=== PATIENT | female | born 1990 | race Caucasian/White ===

== ENCOUNTER 2016-10-10 23:36 | Emergency (ER) | payer MEDICAID ==
[~2016-10-10] VITALS: Ht 172.7 cm; Wt 100.7 kg
[~2016-10-10 23:36] MED LIST: ALB0.5V INH; DIVA250T4 PO; FLUT1DIS3 IH; HYDR-3702 PO; LURA80TA PO; RIZA10TA23 PO; TRAZ300T3 PO
[2016-10-11] MEDS ORDERED: SODIUM CHLORIDE FLUSH 10 ML SYR IV PRN (00:30)
[2016-10-11] MEDS ORDERED: SODIUM CHLORIDE FLUSH 3 ML SYR IV PRN (00:30)
[2016-10-11] MEDS ORDERED: cefTRIAXone SODIUM 1,000 MG in SODIUM CHLORIDE 50 ML IV ONE (00:30)
[2016-10-11] MEDS ORDERED: PROMETHAZINE/CODEINE SYRUP 6.25MG-10MG/5ML (PHENERGAN W/COD) UDC PO ONE (00:30)
[2016-10-11] MEDS ORDERED: GFCD10B GT (00:35)
[2016-10-11 01:06] LABS: BASOPHILS % (AUTO) 0 % (0-2); EOSINOPHILS # (AUTO) 0.2 10^3uL; EOSINOPHILS % (AUTO) 2 % (0-4); LYMPHOCYTES # (AUTO) 1.8 X10^3; MEAN CORPUSCULAR HEMOGLOBIN 27.2 PG (26.0-34.0); MEAN CORPUSCULAR HGB CONC 34.5 g/dL (31.0-37.0); MEAN PLATELET VOLUME 10.1 FL (6.0-9.5); MONOCYTES # (AUTO) 0.6 X10^3; MONOCYTES % (AUTO) 8 % (3-11); NEUTROPHILS # (AUTO) 5.6 X10^3; NEUTROPHILS % (AUTO) 68 % (51-67); PLATELET COUNT 250 10^3uL (150-450); WHITE BLOOD COUNT 8.16 10^3uL (4.0-11.0)
[2016-10-11 01:12] LABS: MEAN CORPUSCULAR VOLUME 79 FL (80-100)
[2016-10-11 01:19] LABS: ALBUMIN 4.5 g/dL (3.4-5.0); ANION GAP 18.4 MEQ/L (3-15); CALCULATED IONIZED CALCIUM 3.9 mg/dL (3.8-4.6); TOTAL PROTEIN 7.7 g/dL (6.4-8.5)
[2016-10-11] MEDS ORDERED: ONDANSETRON 2 MG/ML (Z0FRAN) 2 ML VIAL IV ONE (01:20)
[2016-10-11] MEDS ORDERED: KETOROLAC 30 MG/ML (TORADOL) 1 ML VIAL IV ONE (01:20)
[2016-10-11] MEDS ORDERED: ED- PROMETHAZINE/CODEINE SYRUP 6.25MG-10MG/5 ML (PHENERGAN) 118 ML BTL PO ONE (02:20)
[2016-10-11] MEDS ORDERED: PRCD5U PO (02:24)
[2016-10-11] MEDS ORDERED: diphenhydrAMINE 50 MG/ML INJ (BENADRYL) IV ONE (02:35)
[2016-10-11 02:48] VITALS: BP 110/68
--- NOTE | 2016-10-11 08:42 | Diagnostic Imaging Report ---
CLINICAL INDICATION: Patient with shortness of breath. EXAM: Chest x-ray, PA and lateral views. The patient was shielded with a lead apron on both views per physician. COMPARISON: None. FINDINGS: LUNGS/PLEURA: The lungs are clear. There is no pneumothorax. There is no pleural effusion. MEDIASTINUM: Unremarkable. PULMONARY VASCULATURE: Unremarkable. HEART: Unremarkable. BONES/EXTRATHORACIC SOFT TISSUE: Unremarkable. IMPRESSION: Unremarkable chest x-ray exam with no radiographic evidence of an acute cardiopulmonary process. Dictated by: Dictated on workstation # [id number]
== END 2016-10-11 02:50 | disposition home or self-care (01) ==
LOC: ED 23:38
DX: J45.909 Unspecified asthma, uncomplicated (principal); R04.2 Hemoptysis
CPT/HCPCS: 36415; 71020; 80053; 85025; 96361; 96365; 96375; 99283; A9270; J0696; J1200; J1885; J2405; J7030

== ENCOUNTER 2017-01-02 00:28 | Emergency (ER) | payer MEDICAID ==
[~2017-01-02] VITALS: Ht 172.7 cm; Wt 98.0 kg
[~2017-01-02 00:28] MED LIST changes: +GFCD10B GT; +PRCD5U PO
--- OUTSIDE RECORDS SUMMARY | 2017-01-02 00:34 | XMS REPORT | Continuity of Care Document ---
Author Author Desi Weeks Address Unknown Phone Unavailable Care Team Providers Care Bsa Officer Name Role Phone [employer] Unavailable Unavailable Problems Medications Allergies, Adverse Reactions, Alerts Substance Category Reaction Severity Reaction type Status Date Reported Comments Source penicillin Datatype(AL1.2)-Drug Allergy ACTIVE 08/09/2010 [facility] sulfADIAZINE ACTIVE 08/09/2010 [facility] iodine topical ACTIVE 08/09/2010 [facility] Bactrim ACTIVE 08/09/2010 [facility] Immunizations Results Order Name Results Value Reference Range Date Interpretation Comments Source Chlamydia AB ChlAB Negative 08/10/2010 N [facility] US Pelvic Complete US Pelvic Complete MARCELO HO PELVIC ULTRASOUND INDICATION: Pelvic pain since an IUD was placed in May 2010. TECHNIQUE: Sonographic evaluation of the uterus and ovaries was performed utilizing a 5 MHz curved probe and the urinary bladder as a sonographic window. FINDINGS: The uterus measures 8.6 x 3.8 x 4.7 cm. It is anteverted. The patient declined endovaginal portion of the examination. The endometrial echo complex measures 5 mm. There is no evidence of uterine masses. There is no evidence of free fluid in the posterior cul-de-sac. The intrauterine device was removed after 5 months due to continued bleeding. The right ovary measures 2.8 x 2.1 x 2.1 cm. The left ovary measures 2.2 x 1.8 x 1.6 cm. IMPRESSION: Normal uterus and endometrial echo complex. A 1.3 cm right ovarian cyst. Normal arterial blood flow to the ovaries. The intrauterine device has been removed. Final Dictated By: Sergio Watt MD Signed By: Sergio Watt MD Signed Dt/Yessenia 08/09/2010 23:31 Transcribed By: LAW Transcribed Dt/Tm: 08/09/2010 22:13</br> Clinical History Current History pelvic pain since iud placed in may...iud removed 08/05 after prev us..bleeding since removal Previous History/Surgery hx rt ov ca at age 17 per pt; pervious exam on 08/05;; mirena placed 5 months ago, removed 08/0508/09/2010 Final Dictated By: Sergio Watt MD Signed By: Sergio Watt MD Signed Dt/Tm 08/09/2010 23:31 Transcribed By: LAW Transcribed Dt/Tm: 08/09/2010 22:13 [facility] C GC C GC PATIENT: MARCELO HO PHYSICIAN: FELIPE Fountain MD PROC: GC Culture SOURCE: Cerv SITE: Vagina FT SOURCE: [phone] STAINS / PREPARATIONS Gram Stain Report Verified:08/10/10 07:00 Few White Blood Cells Moderate Red Blood Cells Many Gram Negative Rods Few Gram Positive Cocci FINAL REPORT Final Report Verified:08/13/10 15:07 No Neisseria gonorrhoeae Isolated 08/09/2010 [facility] W Prep W Prep PATIENT: MARCELO HO PHYSICIAN: FELIPE Fountain MD PROC: Wet Prep SOURCE: Vaginal SITE: FT SOURCE: [phone] FINAL REPORT Final Report Verified:08/09/10 18:13 No Trichomonas seen No Clue cells observed. No Yeast Observed 08/09/2010 [facility] Emergency Room Documents Emergency Room Documents Patient: MARCELO HO Age: 20 years Sex: Female : [birth year] Associated Diagnoses: None Author: Astrid Fountain MD Basic Information Time seen: Date & time 08/09/10 17:25:00. History source: Patient. Arrival mode: Walking. Vital signs: , First ED Vitals (08/09/10 13:23) Temp BP Pulse RR SAO2 O2 Flow Rate MAP 36.8 122/95 88 20 99 Most Recent Vitals (as of 08/09/10 13:23) Temp BP Pulse RR SAO2 O2 Flow Rate MAP 36.8 122/95 88 20 99 Vitals Range (08/09/10 13:23) Temp BP Pulse RR SAO2 O2 Flow Rate MAP 36.8 122 88 20 99 95 per nurse's notes. Medications: , Medication Orders hydromorphone (Dilaudid), 1 mg, 1 mL, IM, STAT promethazine (Phenergan), 25 mg, IM, STAT Prescriptions and Home Medications fluticasone-salmeterol (Advair Diskus 100 mcg-50 mcg inhalation powder), 1 Puff( s), INH, BID albuterol, 0 Number of Refills, 0 albuterol, See Instructions, NEB, PT. UNSURE OF DOSAGE doxycycline, 100 mg, PO, BID, 0, 14 Day(s) acetaminophen-oxycodone (Percocet 5/325), 1 Tab, PO, Q6H, 20 Tab, 0, PRN: as needed for painper nurse's notes. Allergies: . Allergic Reactions (Selected) Severity not Documented Bactrim- No reactions were documented. Iodine topical- No reactions were documented. Penicillin- No reactions were documented. SulfADIAZINE- No reactions were documented. Immunizations: Per nurse's notes. Menstrual- history: Per nurse's notes. History limitation: None. Notes: . Health History ED ED Cardiac Medical History: No ED Dyslipidemia: No ED Respiratory Medical History: Yes, asthma ED Neurological Medical History: No ED Diabetes Medical History: No ED High Blood Pressure Medical History: No ED Currently : No ED LMP: No ED Previous Surgeries: Yes, D&C, tonsils, wisdom teeth ED Other Medical Hx: Yes, ovarian cancer ED Smoking Hx: No Exposed to Second Hand Smoke: No ED Tetanus < 5 years: No History of Present Illness The patient is a 20 years old Female who presents with abdominal pain. Duration lasting 4 day(s). The onset was gradual. The course is constant. Episodes of pain lasting 4 day(s) and Other.... The location of pain upon onset was suprapubic. The present location of pain is suprapubic and seen in er 4d ago ,had iud removed ,u/s revealed moderate pelvic fluid ,comolex Rovarian cyst. Radiating pain: none. The quality is aching and sharp. The exacerbating factor is changing position. The mitigating factor is analgesics. Prior abdominal problems: similar symptoms. The risk factor is ?pid. Sexual intercourse: with a single partner. Associated Symptoms Constitutional symptoms: Negative. ENT: Negative Cardiovascular symptoms: Negative. Orthostatic symptoms:: Negative. Respiratory symptoms: Negative. Oral intake: Decreased appetite. Nausea: Negative. Vomiting episodes: Negative. Bowel movements: Within normal limits. Genitourinary symptoms: Negative Skin symptoms: Negative. Review of Systems Musculoskeletal symptoms: Negative Neurologic symptoms: Negative Lymphatic symptoms: Negative Other significant review of systems All other systems reviewed and otherwise negative Past Medical/ Family/ Social History Medical history: Reviewed as documented in chart. Surgical history: Reviewed as documented in chart. Family history: Reviewed as documented in chart. Social history: Reviewed as documented in chart. Problem list: Include problem list. No problem items selected or recorded. Physical Examination General appearance: No acute distress. Skin: Warm. Dry. No pallor. Eye: Pupils equal, round, and reactive to light. Extraocular movements intact. Normal conjuctiva. Ears, nose, mouth and throat: Tympanic membranes clear. Oral mucosa moist. No pharyngeal erythema or exudate. Neck: Supple, trachea midline, no tenderness. Heart: Regular rate and rhythm, normal S1 & S2, no extra heart sounds. Perfusion: Within normal limits. Respiratory: Lungs clear to auscultation bilaterally. Respirations nonlabored. Abdominal: Normal bowel sounds. Soft. Nontender. Non distended. Pelvic: No mass. no tenderness. no discharge. Back: Nontender. Normal range of motion. Normal alignment. Extremity: Normal range of motion. Normal tone. No swelling. Neurological: Alert. No focal neuro deficits. Medical Decision Making Clinical work-up/Interpretation Results: Lab View. 08/09/10 18:04 Wet Prep See Results 08/09/10 14:01 UA Color Yellow UA Appear Clear UA pH 6.5 UA Spec Grav 1.012 UA Protein Negative UA Glucose Negative UA Ketones Negative UA Bili Negative UA Blood 2+ UA Urobilinogen Normal UA Nitrite Negative UA Leuk Est Negative UA WBC 0-5 UA Epithelial 0-5 UA Granular Cast None Seen UA Hyal Cast None Seen UA RBC Casts None Seen UA Waxy Cast None Seen UA WBC Cast None Seen UA Epi Cast None Seen 08/09/10 13:58 WBC 6.9 x10^3/uL RBC 4.83 x10^6/uL Hgb 13.8 gm/dL Hct 39.6 % MCV 82 fL MCH 28.6 pg MCHC 34.8 gm/dL RDW 12.3 % Platelet 252 x10^3/uL Segs 53 % Lymph 39 % Luce 7 % Eos 1 % Baso 0 % Abs Neutro 3.650 x10^3/uL Abs Lymph 2.730 x10^3/uL Abs Luce .460 x10^3/uL Abs Eos .060 x10^3/uL Abs Baso .020 x10^3/uL RBC Morph Normal Total Protein 7.3 gm/dL Albumin Level 4.1 gm/dL Calcium 8.4 mg/dL LOW Bili Total 0.8 mg/dL Alk Phos 82 IU/L Sodium 137 mmol/L Potassium 4.2 mmol/L Chloride 101 mmol/L TCO2 25 mmol/L Glucose Level 81 mg/dL BUN 10 mg/dL Creatinine .6 mg/dL LOW eGFR >60 mL/min eGFR () >60 mL/min ALT/GPT 30 IU/L AST/GOT 10 IU/L LOW Amylase 33 IU/L Lipase 136 U/L HCG Qual Negative Ultrasound: Pelvic, Rovarian mass decreased by 1/2 ,no pelvic fluid, Time reported 08/09/10 20:02:00. Calls-Consults: Time 08/09/10 20:33:00, Macy Luo MD, Called. Impression and Plan Diagnosis Abdominal pain 789.00 (ICD9 789.00, Discharge, Emergency medicine, Medical) [id number] 29[facility], [facility], Medical) Abdominal pain 789.00 (ICD9 789.00, Discharge, Emergency medicine, Medical) [facility] [id number], Reason For Visit, Emergency medicine, Medical) Discharge plan Condition: Stable. Dispositioned: Time 08/09/10 20:34:00, To home. Patient was given the following educational materials: PID, OVARIAN CYST. Follow up with: Macy Luo Within 1 to 3 days Return if worsening; meds as prior to arrival See a doctor within a week. Counseled: Patient, Regarding diagnosis, Regarding treatment plan, Regarding diagnostic results, Regarding prescription. Emergency Medical Treatment and Active Labor Act/Prudent layperson: Emergency Medical Condition Exists at Discharge: Resolved. 08/09/2010 [facility] CHEM12 eGFR () >60 mL/min >=60 2009 N Estimated GFR for an calculated using MDRD study equation. Result Verified by Discern Expert. [facility] STEFFANIE Amylase 33 IU/L 23 - 85 08/09/2010 N [facility] CHEM12 BUN 10 mg/dL 10 - 20 08/09/2010 N [facility] LIP Lipase 136 U/L 73 - 393 08/09/2010 N [facility] UA Reflex to Culture UA RBC Casts None Seen 08/09/2010 N [facility] CHEM12 TCO2 25 mmol/L 24 - 32 08/09/2010 N [facility] HCGB HCG Qual Negative Negative 08/09/2010 N [facility] -RBC Morphology RBC Morph Normal Normal 08/09/2010 N Discern Expert [facility] -Auto Diff Abs Eos .060 x10^3 /uL .000 - .432 08/09/2010 N [facility] CBC with Diff Hgb 13.8 gm/dL 12.0 - 16.0 08/09/2010 N [facility] Chlamydia AB ChlAB Negative 08/05/2010 N [facility] C Aer C Aer PATIENT: MARCELO HO PHYSICIAN: Margarita Tam DO PROC: Aerobic Culture SOURCE: Other (Requires Description) SITE: Uterus FT SOURCE: Removed IUD [phone] FINAL REPORT Final Report Verified:09/04/10 14:27 Many Mixed Gram Positive Lexie. 08/05/2010 [facility] W Prep W Prep PATIENT: MARCELO HO PHYSICIAN: Margarita Tam DO PROC: Wet Prep SOURCE: Vaginal SITE: FT SOURCE: [phone] FINAL REPORT Final Report Verified:08/05/10 10:56 Few White Blood Cells Many epithelial cells Bacteria seen No Trichomonas observed. No fungal elements seen. 08/05/2010 [facility] C Altagracia C Altagracia PATIENT: MARCELO OH PHYSICIAN: Margarita Tam DO PROC: Anaerobic Culture SOURCE: Other (Requires Description) SITE: Uterus FT SOURCE: IUD removed FINAL REPORT Final Report Verified:09/04/10 14:30 Few Anaerobic Gram Negative Cocci 08/05/2010 [facility] C GC C GC PATIENT: MARCELO HO PHYSICIAN: Margarita Tam DO PROC: GC Culture SOURCE: Cerv SITE: Vagina FT SOURCE: [phone] STAINS / PREPARATIONS Gram Stain Report Verified:08/05/10 15:16 Few White Blood Cells Few epithelial cells Clue cells observed. Many Mixed lexie (multiple species present) FINAL REPORT Final Report Verified:08/08/10 07:28 No Neisseria gonorrhoeae Isolated 08/05/2010 [facility] US Pelvic Complete US Pelvic Complete MARCELO HO PELVIC ULTRASOUND INDICATION: Pelvic pain since Mirena placed 5 months ago, pain getting worse that last few days, reported history of right ovarian cancer. TECHNIQUE: Multiple static serrano-scale and color Doppler ultrasound images are provided from a transabdominal and transversalis pelvic ultrasound. No priors. FINDINGS: Uterus measures 8.9 x 3.4 x 5.1 cm in the anteverted position. Endometrium measures 6 mm. IUD is present within the endometrium in standard position. Moderate amount of free fluid is present in the cul-de-sac measuring up to 5.0 x 3.3 cm with some faint echoes suggesting this fluid might be complex. Right ovary measures 43 x 21 x 21 mm with a 23 x 12 x 17-mm, complex cyst with thick, somewhat corrugated lee and surrounding color Doppler blood flow, most suggestive of a ruptured and collapse follicular or hemorrhagic cyst. Normal color Doppler blood flow in the ovary. Left ovary measures 33 x 15 x 13 mm with normal color Doppler blood flow. IMPRESSION: 1. IUD in standard position within the endometrium. 2. Moderate amount of free fluid in the cul-de-sac with some internal echoes, this could be complex suggesting a small amount of either protein, hemorrhage, or less likely infection. Clinical and laboratory correlation is recommended. 3. Right ovarian complex cyst measuring 23 x 12 x 17 mm with a thick and corrugated wall, this is most suggestive of a ruptured follicular or hemorrhagic cyst. This deserves follow up to resolution in 8 to 10 weeks. Findings were called to the ER by the correctional sergeant at the time of study. Final Dictated By: Enrique Redmond MD Signed By: Enrique Redmond MD Signed Dt/Tm 08/05/2010 13:37 Transcribed By: RRR Transcribed Dt/Tm: 08/05/2010 10:34</br> Clinical History Current History non specific pelvic pain since mirena placed 5 months ago, pain getting worse in the last few days Previous History/Surgery right ov ca with 6 months of chemo at age 17 08/05/2010 Final Dictated By: Enrique Redmond MD Signed By: Enrique Redmond MD Signed Dt/Tm 08/05/2010 13:37 Transcribed By: RRR Transcribed Dt/Tm: 08/05/2010 10:34 [facility] PG Ur Negative Negative 08/05/2010 N [facility] UA Reflex to Culture UA Protein Negative Negative 2009 N [facility] Emergency Room Documents Emergency Room Documents Patient: MARCELO HO Age: 20 years Sex: Female : 1990 Associated Diagnoses: None Author: Margarita Tam DO Basic Information Vital signs: , First ED Vitals (08/05/10 07:17 to 08/05/10 07:50) Temp BP Pulse RR SAO2 O2 Flow Rate MAP 36.0 120/73 87 20 99 93.33 Most Recent Vitals (as of 08/05/10 07:50) Temp BP Pulse RR SAO2 O2 Flow Rate MAP 36.0 122/79 87 18 99 93.33 Vitals Range (08/05/10 07:17 to 08/05/10 07:50) Temp BP Pulse RR SAO2 O2 Flow Rate MAP 36.0 120-122 87 18-20 99 93.33 73-79 Oxygen saturation: Oxygen Therapy & Oxygenation Information. 08/05/2010 07:50 Oxygen Therapy Room air 08/05/2010 07:17 Oxygen Therapy Room air Oxygen Saturation 99 % 08/04/2010 15:12 Oxygen Therapy Room air Oxygen Saturation 99 % Medications: . Medication Orders acetaminophen-hydrocodone (Lortab 5/500), 1 Tab, PO, NOW Prescriptions and Home Medications fluticasone-salmeterol (Advair Diskus 100 mcg-50 mcg inhalation powder), 1 Puff( s), INH, BID albuterol, 0 Number of Refills, 0 albuterol, See Instructions, NEB, PT. UNSURE OF DOSAGE Allergies: . Allergic Reactions (Selected) Severity not Documented Bactrim- No reactions were documented. Iodine topical- No reactions were documented. Penicillin- No reactions were documented. SulfADIAZINE- No reactions were documented. Notes: Chief Complaint from Nursing Triage Note : Reason for Visit Additional Info, 08/05/2010 07:17 Reason for Visit Additional Info pt states she was here yest, left because of wait time, no tests were done, her mirena is causing her problems, she's having white discharge and it hurts to pee 08/04/2010 15:12 Reason for Visit Additional Info pt. is having thick white discharge, uterun pain d/t abigail. has had abigail in x 4 months. . Health History ED ED Cardiac Medical History: No ED Dyslipidemia: No ED Respiratory Medical History: Yes, asthma ED Neurological Medical History: No ED Diabetes Medical History: No ED High Blood Pressure Medical History: No ED Currently : No ED LMP: No ED Previous Surgeries: Yes, D&C, tonsils, wisdom teeth ED Other Medical Hx: Yes, ovarian cancer ED Smoking Hx: No Exposed to Second Hand Smoke: No ED Tetanus < 5 years: No History of Present Illness The patient is a 20 years old Female who presents with a complaint of pelvic pain and dysuria. Duration lasting approximately 4 month(s). The onset was gradual. The course is constant. Quality: crampy and throbbing. The degree of pain is moderate. Location: Lower abdomen. Radiating pain: none. There are exacerbating factors including intercourse and palpation of the abdomen.. The mitigating factor is negative. Sexual intercourse: single partner. Contraception: intrauterine device. Prior episodes: urinary tract infection. The patient tells me that she has had pelvic pain since she had a Mirena IUD placed about four months ago in [facility]. She tells me that she followed up with her RADIOLOGY ASSISTANT who examined her and told her that it was in good position. She is continued to have pain and doesn't have a reason as to why other than the IUD. She has not had pain prior to having had the IUD placed. She tells me that she would like to have her IUD removed if at all possible. She does have a history of having ovarian cysts she tells me, however, this is not the same. She has developed dysuria over the past two days and thinks she might have a urinary tract infection. She does have a thick white vaginal discharge that has been present since the IUD was placed. She has no other complaints at this time.. Also, the patient cannot feel the IUD strings and feels that it has moved up in her uterus.. Associated Symptoms Constitutional symptoms: Negative. Cardiovascular symptoms: Negative. Orthostatic symptoms:: Negative. Respiratory symptoms: Negative. Oral intake: Within normal limits. Nausea: Negative. Vomiting episodes: Negative. Bowel movements: Within normal limits. Urinary symptoms: Dysuria. Dysuria: Mild. Vaginal discharge: Minimal, white discharge, thick. Vaginal bleeding: Negative. Vulvar symptoms None. Negative. Review of Systems Other significant review of systems All other systems reviewed and otherwise negative Past Medical/ Family/ Social History Medical history: Reviewed as documented in chart. Surgical history: Reviewed as documented in chart. Family history: Reviewed as documented in chart. Social history: Reviewed as documented in chart. Physical Examination General appearance: No acute distress. Skin: Warm. Dry. Ears, nose, mouth and throat: Oral mucosa moist Abdominal: Normal bowel sounds. Soft. Non distended. No organomegaly. Tenderness: Mild suprapubic right lower quadrant left lower quadrant. Guarding : negative. Rebound: negative. Neurological: Alert and oriented times 3. No focal neuro deficits. Medical Decision Making Clinical work-up/Interpretation Results: Lab View. 08/05/2010 07:55 UA Color O'Brien UA Appear 1+ UA pH 5.5 UA Spec Grav 1.019 UA Protein Negative UA Glucose Negative UA Ketones Negative UA Bili Negative UA Blood Negative UA Urobilinogen Increased UA Nitrite Positive UA Leuk Est Negative UA WBC 0-5 UA Epithelial 11-20 UA Mucous RARE Ur Negative Notes: Pelvic Ultrasound: Per radiology - IUD inplace, moderate amt of free pelvic fluid, appears to be from a ruptured ovarian cyst on the right. Rest of exam is normal.. Reexamination/Reevaluation Reexamination: Notes: I discussed the findings of the labs and the findings of the ultrasound with the patient. I explained to her that the her pain may be coming solely from the ruptured ovarian cyst. She still desired to have the IUD removed. I did explain to her that with IUD removal she still may not become pain-free because she has the rupture ovarian cysts. She understood that. She still desired to have the IUD removed. An informed consent was obtained for IUD removal. This was witnessed by the nurse.. Procedure Pelvic ultrasound procedure IUD removal: With the patient in the dorsal lithotomy position a vaginal speculum was placed in the vagina in the usual fashion. There was a scant amount of thick whitish discharge seen in the vagina and surrounding the cervix. The cervix otherwise appeared normal. The IUD strings were not readily visible. I did obtain cultures and those have been sent to the lab. I then used a small cotton swab to coax the IUD strings from the cervical os. I was able to get just a small amount of string to protrude from the os and then with the alligator forceps was able to grasp the strings and slowly remove the IUD. The patient tolerated this well, the IUD was removed with no complications. There was no bleeding. A bimanual exam was performed and she does have cervical motion tenderness and slightly more tenderness in the right adnexa. No masses are palpated in the adnexa bilaterally. The uterus palpated within normal limits. The speculum was removed. Due to the possibility of infection it is in the IUD for culture as well. I have also given the patient 500 mg of Rocephin IM and will discharge her home on doxycycline as well as pain medication. The Lortab did not help and she wanted something stronger therefore I gave her 1 mg of Dilaudid IM. She is allergic to PCN, causes a rash, she tells me that she has had Rocephin in the past without any problems. Impression and Plan Ovarian Cyst - ruptured Pelvic Pain - most likely due to the IUD vs infection vs both. She might have a slight UTI, but will treat for PID, that should cover the UTI. Desire to have the IUD removed. Discharge plan Condition: Stable. Dispositioned: Time 08/05/2010 10:51:00, To home. Prescriptions: Doxycycline(100 mg PO BID #14 Day(s) 0 Refill(s) 0 Tot. Refills), Acetaminophen-oxycodone (Percocet 5/325)(1 Tab PO Q6H PRN #20 Tab 0 Refill(s) 0 Tot. Refills). Patient was given the following educational materials: PELVIC PAIN, Unknown Cause, OVARIAN CYST. Follow up with: Welfare Social Within 1 to 3 days Return if worsening It appears that your pain is due to the ruptured ovarian cyst, however, it could be due to the IUD we just removedor even an infection. I am treating you for the possible infection because if you have an infection that goes untreated you may become seriously ill. Please take the antibiotics as prescribed. The cultures will take a couple of days to come back, you will be called with any positive result, Now that your IUD is removed you may become .. Counseled: Patient, Regarding diagnosis, Regarding treatment plan, Regarding diagnostic results, Regarding prescription. Emergency Medical Treatment and Active Labor Act/Prudent layperson: Emergency Medical Condition Exists at Discharge: Resolved. 08/05/2010 [facility] C Urine C Urine PATIENT: MARCELO HO PHYSICIAN: Margarita Tam DO PROC: Urine Culture SOURCE: Urine SITE: SOURCE: [phone] FINAL REPORT Final Report Verified:08/06/10 10:24 60,000 cfu/ml Mixed elxie (multiple species present) The presence of three isolated bacterial species is likely to be related to contamination. No further workup. ORDER COMMENTS (1)Ordered by Discern Expert secondary to positive result for UA Leuk Est, or UA Nitrite 08/05/2010 [facility] Vital Signs Encounters Location Location Details Encounter Type Encounter Number Reason For Visit Attending Provider ADM Date DC Date Status Source [facility] Emergency Room [id number] SIDE PAIN Summer Masters 200907/02/2010 Active [facility] Emergency Room [id number] VAG BLEED ERP NO 08/04/2010 08/04/2010 Active [facility] Emergency Room [id number] ABDOMINAL PAIN MARGARITA TAM 08/05/2010 08/05/2010 Active [facility] Emergency Room [id number] ABDOMINAL PAIN ERP NO 200908/06/2010 Active [facility] Emergency Room [id number] VAGINAL BLEED ASTRID [place]AIN 08/09/2010 08/09/2010 Active [facility] Procedures Plan of Care Social History Assessment and Plan Family History Value Date Source Advance Directives Order Name Results Value Date Source
--- OUTSIDE RECORDS SUMMARY | 2017-01-02 00:37 | XMS REPORT | Continuity of Care Document ---
Author Author Desi Weeks Address Unknown Phone Unavailable Care Team Providers Care Compensation Specialist Name Role Phone [employer] Unavailable Unavailable Problems [...] Culture SOURCE: Cerv SITE: Vagina FT SOURCE: [phone] STAINS / PREPARATIONS Gram Stain Report Verified:08/10/10 07:00 Few White Blood Cells Moderate Red Blood Cells Many Gram Negative Rods Few Gram Positive Cocci FINAL REPORT Final Report Verified:08/13/10 15:07 No Neisseria gonorrhoeae Isolated 08/09/2010 [facility] W Prep W Prep PATIENT: MARCELO HO PHYSICIAN: FELIPE Fountain MD PROC: Wet Prep SOURCE: Vaginal SITE: FT SOURCE: [phone] FINAL REPORT Final Report Verified:08/09/10 18:13 No [...] x10^3/uL Segs 53 % Lymph 39 % [place] 7 % Eos 1 % Baso 0 % Abs Neutro 3.650 x10^3/uL Abs Lymph 2.730 x10^3/uL Abs [place] .460 x10^3/uL Abs Eos .060 x10^3/uL Abs [...] (ICD9 789.00, Discharge, Emergency medicine, Medical) P[facility] [id number], Discharge, Medical) Ovarian cyst ([facility] [id number], Discharge, Medical) Abdominal pain 789.00 (ICD9 789.00, Discharge, Emergency medicine, Medical) Abdominal pain ([facility] [id number], Reason For Visit, Emergency medicine, Medical) Discharge [...] Medical Condition Exists at Discharge: Resolved. 08/09/2010 [facility] CHEM12 eGFR () >60 mL/min >=60 2009 N Estimated GFR for an calculated using MDRD study equation. Result Verified by Discern Expert. [facility] STEFFANIE Amylase 33 IU/L 23 - 85 08/09/2010 N [facility] CHEM12 BUN 10 mg/dL 10 - 20 08/09/2010 N [facility] LIP Lipase 136 U/L 73 - 393 08/09/2010 N [facility] UA Reflex to Culture UA RBC Casts None Seen 08/09/2010 [facility] CHEM12 TCO2 25 mmol/L 24 - 32 08/09/2010 N [facility] HCGB HCG Qual Negative Negative 08/09/2010 [facility] -RBC Morphology RBC Morph Normal Normal 08/09/2010 N Discern Expert [facility] -Auto Diff Abs Eos .060 x10^3 /uL .000 - .432 08/09/2010 N [facility] CBC with Diff Hgb 13.8 gm/dL 12.0 - 16.0 08/09/2010 N [facility] Chlamydia AB ChlAB Negative 08/05/2010 N [facility] C Aer C Aer PATIENT: MARCELO HO PHYSICIAN: Margarita Tam DO PROC: Aerobic Culture SOURCE: Other (Requires Description) SITE: Uterus FT SOURCE: Removed IUD [phone] FINAL REPORT Final Report Verified:09/04/10 14:27 Many Mixed Gram Positive Lexie. 08/05/2010 [facility] W Prep W Prep PATIENT: MARCELO HO PHYSICIAN: Margarita Tam DO PROC: Wet Prep SOURCE: Vaginal SITE: FT SOURCE: [phone] FINAL REPORT Final Report Verified:08/05/10 10:56 Few White Blood Cells Many epithelial cells Bacteria seen No Trichomonas observed. No fungal elements seen. 08/05/2010 [facility] C Altagracia C Altagracia PATIENT: MARCELO HO PHYSICIAN: Margarita Tam DO PROC: Anaerobic Culture SOURCE: Other (Requires Description) SITE: Uterus FT SOURCE: IUD removed FINAL REPORT Final Report Verified:09/04/10 14:30 Few Anaerobic Gram Negative Cocci 08/05/2010 [facility] C GC C GC PATIENT: MARCELO HO PHYSICIAN: Margarita Tam DO PROC: GC Culture SOURCE: Cerv SITE: Vagina FT SOURCE: [phone] STAINS / PREPARATIONS Gram Stain Report Verified:08/05/10 15:16 Few White Blood Cells Few epithelial cells Clue cells observed. Many Mixed lexie (multiple species present) FINAL REPORT Final Report Verified:08/08/10 07:28 No Neisseria gonorrhoeae Isolated 08/05/2010 [facility] US Pelvic Complete [...] were called to the ER by the drafting detailer at the time of study. Final Dictated [...] IUD placed about four months ago in [facility]. She tells me that she followed up with her ENVIRONMENTAL OFFICER who examined her and told her that [...] Results: Lab View. 08/05/2010 07:55 UA Color [place] UA Appear 1+ UA pH 5.5 UA [...] Medical Condition Exists at Discharge: Resolved. 08/05/2010 [facility] C Urine C Urine PATIENT: MARCELO HO PHYSICIAN: Margarita Tam DO PROC: Urine Culture SOURCE: Urine SITE: SOURCE: [phone] FINAL REPORT Final Report Verified:08/06/10 10:24 60,000 cfu/ml Mixed lexie (multiple species present) The presence of three isolated bacterial species is likely to be related to contamination. No further workup. ORDER COMMENTS (1)Ordered by Discern Expert secondary to positive result for UA Leuk Est, or UA Nitrite 08/05/2010 [facility] Vital Signs Encounters Location Location Details Encounter Type Encounter Number Reason For Visit Attending Provider ADM Date DC Date Status Source [facility] Emergency Room [id number] SIDE PAIN Summer Masters 200907/02/2010 Active [facility] [id number] VAG BLEED ERP NO 08/04/2010 08/04/2010 Active [facility] [id number] ABDOMINAL PAIN MARGARITA TAM 08/05/2010 08/05/2010 Active [facility] [id number] ABDOMINAL PAIN ERP NO 200908/06/2010 Active [facility] [id number] VAGINAL BLEED ASTRID [place] 08/09/2010 08/09/2010 Active [facility] Procedures Plan of Care Social History Assessment and Plan Family History Value Date Source Advance Directives Order Name Results Value Date Source
[2017-01-02] MEDS ORDERED: SODIUM CHLORIDE FLUSH 10 ML SYR IV PRN (01:50)
[2017-01-02] MEDS ORDERED: SODIUM CHLORIDE FLUSH 3 ML SYR IV ONE (01:50)
[2017-01-02] MEDS ORDERED: KETOROLAC 30 MG/ML (TORADOL) 1 ML VIAL IV ONE (01:50)
[2017-01-02] MEDS ORDERED: ONDANSETRON 2 MG/ML (Z0FRAN) 2 ML VIAL IV ONE (01:50)
[2017-01-02 02:41] LABS: BASOPHILS % (AUTO) 0 % (0-2); EOSINOPHILS # (AUTO) 0.1 10^3uL; EOSINOPHILS % (AUTO) 1 % (0-4); LYMPHOCYTES # (AUTO) 3.4 X10^3; MEAN CORPUSCULAR HEMOGLOBIN 27.1 PG (26.0-34.0); MEAN CORPUSCULAR HGB CONC 33.6 g/dL (31.0-37.0); MEAN CORPUSCULAR VOLUME 81 FL (80-100); MEAN PLATELET VOLUME 10.1 FL (6.0-9.5); MONOCYTES # (AUTO) 0.6 X10^3; MONOCYTES % (AUTO) 7 % (3-11); NEUTROPHILS # (AUTO) 4.3 X10^3; NEUTROPHILS % (AUTO) 52 % (51-67); PLATELET COUNT 264 10^3uL (150-450); WHITE BLOOD COUNT 8.39 10^3uL (4.0-11.0)
[2017-01-02 02:53] LABS: ALBUMIN 4.5 g/dL (3.4-5.0); ALKALINE PHOSPHATASE 98 U/L (38-126); ANION GAP 17.9 MEQ/L (3-15); BUN/CREATININE RATIO 16 (10-20); LIPASE* 157 U/L (23-300); TOTAL PROTEIN 7.5 g/dL (6.4-8.5)
[2017-01-02 03:02] LABS: BILIRUBIN,URINE Negative (Negative); CLARITY,URINE Clear; GLUCOSE, URINE (UA) Negative (Negative); LEUKOCYTE ESTERASE ,URINE Negative (Negative)
[2017-01-02 03:04] LABS: COLOR,URINE Dark Yellow
[2017-01-02 03:12] LABS: AMPHETAMINE SCREEN, URINE Negative (Negative); CANNABINOID SCREEN, URINE Negative (Negative); METHAMPHETAMINE SCREEN URINE S NEGATIVE (NEGATIVE); OPIATE SCREEN URINE Negative (Negative); PROPOXYPHENE STAT NEGATIVE (NEGATIVE)
--- NOTE | 2017-01-02 03:25 | NUR ---
RN answered pt's call light, pt needed to use BR, pt is sitting up in the bed cross legged, and talking to her friend. Pt tolerates getting up to the commode.
--- NOTE | 2017-01-02 03:29 | NUR ---
Pt being wheeled by the nurse station, and has the technology advisor stop and pt asks about more nausea medication, RN looks at emar, and explains to pt that there is no new order for nausea, pt states that "well the doctor was going to order me Phenergan" RN explains that when she comes back from CT RN would ask the doctor about the Phenergan.
[2017-01-02] MEDS ORDERED: PROMETHAZINE HCL INJ 12.5 MG in SODIUM CHLORIDE 25 ML IV ONE (03:35)
--- NOTE | 2017-01-02 03:56 | NUR ---
pt moved to room 1, because the toilet continues to flush
--- NOTE | 2017-01-02 04:30 | NUR ---
Pt's call light answered, pt needs to use the restroom, pt tolerated getting up to the toilet, does not appear to be in any distress at this time.
[2017-01-02] MEDS ORDERED: ED- HYDROcodone/ACETAMINOPHEN 5MG/325MG (NORCO) 6 TABLETS/BTL PO ONE (04:55)
[2017-01-02] MEDS ORDERED: HYDROmorphone 1 MG/ML (DILAUDID) SYRINGE IV ONE (04:55)
[2017-01-02] MEDS ORDERED: ED- PROMETHAZINE 25 MG (PHENERGAN) 10 TABLETS/BTL PO ONE (05:00)
--- NOTE | 2017-01-02 05:20 | NUR ---
Pt d/c to home.
[2017-01-02 05:25] VITALS: BP 141/89
--- NOTE | 2017-01-02 08:40 | Diagnostic Imaging Report ---
PROCEDURE: CT abdomen and pelvis without contrast. TECHNIQUE: Multiple contiguous axial images were obtained through the abdomen and pelvis without the use of intravenous contrast. INDICATION: Right lower quadrant pain. Study compared 12/29/2016. Uterus and adnexa appeared unremarkable. There is minimal noninflamed diverticulosis at the sigmoid. There is apparent prior appendectomy. No opaque kidney stone. No hydronephrosis. The liver, spleen, adrenals, pancreas negative. The gallbladder surgically absent. There is no focal inflammatory process. Some mild adenopathy nonspecific in the inguinal canals unchanged from prior. IMPRESSION: No focal inflammatory process, ascites, fluid collection, obstructive phenomena, or acute-appearing abnormalities. Dictated by: Dictated on workstation # [id number]
== END 2017-01-02 05:20 | disposition home or self-care (01) ==
LOC: ED 00:30
DX: R10.31 Right lower quadrant pain (principal); R11.2 Nausea with vomiting, unspecified
CPT/HCPCS: 36415; 74176; 80053; 80307; 81003; 83690; 84703; 85025; 86140; 96361; 96365; 96375; 99284; A9270; J1170; J1885; J2405; J2550; J7030; 99283